=== PATIENT | male | born 1955 | race Two or more races ===

== ENCOUNTER 2017-03-28 12:35 | Observation (INO) | payer OTHER ==
[~2017-03-28] VITALS: Ht 172.7 cm; Wt 61.0 kg
[2017-03-28 12:50] VITALS: BP 166/95; PULSE 60; RESP 18
[2017-03-28 13:53] LABS: BASOPHILS % (AUTO) 0.7 % (0-3); EOSINOPHILS % (AUTO) 1.7 % (0-5); MONOCYTES % (AUTO) 7.4 % (4-12); Mean Corpuscular Volume 83.2 fL (81-100); NEUTROPHILS % (AUTO) 70.2 % (40-74); Platelet Count 128 bil/L (150-400)
[2017-03-28 14:11] LABS: Magnesium 2.1 mg/dL (1.6-2.6)
--- NOTE | 2017-03-28 14:41 | ED.REPORT ---
HPI-General Illness Date of Service Mar 28, 2017 ED Provider: Zander Huber MD Pt is an 62 year old male with a history of celiac disease who presents to the ED complaining of severe and progressively worsening abdominal pain onset 2 weeks ago. He c/o associated vomiting and nausea. He denies hematemesis, chills , fever, constipation, diarrhea, hematuria, hematochezia, chest pain, penile bleeding, and SOB. The pain radiates to his left flank. He rates his pain as a 9 /10, reporting that it is temporarily relieved by BM and exacerbated with solid food and movement. His pain is rated as a 5/10 at rest. The pt describes his pain as sharp and stating "it feels like something is inside and poking to get out." He states that he has not experienced similar symptoms previously. Nursing Notes Stated Complaint: ABDOMINAL PAIN Chief Complaint: Male Abdominal Pain Nursing Notes Reviewed: Yes Allergies: Coded Allergies: Barley Flour (Verified Allergy, Severe, CELIAC, 03/28/17) Wheat (Verified Allergy, Severe, CELIAC, 03/28/17) corn (Verified Allergy, Severe, CELIAC, 03/28/17) dextrose (Verified Allergy, Severe, BLOAT, BLEED, RECTAL PAIN, 03/28/17) ADVANCED CELIAC fructose (Verified Allergy, Severe, 03/28/17) oats (Verified Allergy, Severe, 03/28/17) rice (Verified Allergy, Severe, 03/28/17) sucrose (Verified Allergy, Severe, 03/28/17) No Active Prescriptions or Reported Meds General Time Seen by MD: 13:30 Chief Complaint Abdominal pain Hx Obtained From: Patient Arrived By: Walk-in Sudden in Onset?: No Onset Occurred: More than a week ago... (2 weeks) Symptom Duration: Since onset Location: : Abdomen Quality: Sharp Radiation: : Back Severity: Current: Pain level 5 out of 10 Severity: Maximum: Pain level 9 out of 10 Recent Healthcare: No recent doctor visit, No recent hospitalization Similar Sx Previous: No Past Medical History Past Medical History BPH Hemorrhoid Celiac disease Kidney stone 1x Denies heart disease Denies hx of kidney problems Past Surgical History Left leg repair Left ankle repair Vertebrae repair Clavicle repair Thumb repair Left ACL tear repair Family History Heart disease - father (68) and mother (82) Nephrosis - Sister ancestry Smoking History Unknown if Ever Smoker Social History Alcohol Use: "Social" Drug Use: Denies drug use 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 Ambulatory Status Independent Review of Systems Denies penile bleeding Full Review of Systems Constitutional: Denies: Chills, Fever, Recent wt loss Eyes: Denies: Blurred bilateral Ears / Nose / Throat: Denies: Sore throat Respiratory: Denies: Shortness of breath Cardiovascular: Denies: Chest pain GI: Reports: Abdominal pain, Nausea, Vomiting, Denies: Constipation, Diarrhea, Hematemesis, Hematochezia Male: Reports Flank pain, Reports Urination decreased, Denies Hematuria, Denies Penile discharge Musculoskeletal: Denies: Joint swelling Hematologic: Denies Bleeding, Denies Bruising Endocrine: Denies: Weight loss Skin: Denies Rash Allergy / Immune: Denies: Itching Neurologic: Denies: Change LOC, Headache Complete sys rev & neg: except as marked. Physical Exam Nursing note and vitals reviewed. Constitutional: Well-developed, well-nourished. Not diaphoretic. Head: Normocephalic and atraumatic. Mouth/Throat: Oropharynx is clear and moist. No oropharyngeal exudate. Eyes: EOM are normal. Pupils are equal, round, and reactive to light. Neck: Supple, no tracheal deviation. Cardiovascular: Normal rate, regular rhythm. Equal and intact distal pulses throughout. Pulmonary/Chest: Effort normal and breath sounds normal. No respiratory distress. Abdominal: Soft. No significant distension appreciated. LLQ and LUQ tenderness without rebound or guarding. Bowel sounds present. Back: Left CVA tenderness Musculoskeletal: Range of motion grossly intact, moving all extremities. No edema or tenderness appreciated. Neurological: AOx3. Grossly nonfocal exam. Strength and sensation intact and equal to bilateral upper and lower extremities. Skin: Warm and dry, no rashes or pallor appreciated. Psychiatric: Appropriate mood and affect. Behavior appears normal. Vital Signs Vital Signs Date Time Temp Pulse Resp B/P Pulse Ox O2 Delivery O2 Flow Rate FiO2 03/28/17 14:46 71 16 177/88 100 Room Air 03/28/17 12:50 36.8 60 18 166/95 Room Air Initial VS: Reviewed Interpretation & Diagnostics Lab Results Interpretation Result Diagram: 03/28/17 1335 03/28/17 1335 Test 03/28/17 13:35 03/28/17 15:33 White Blood Count 5.8th/mm3 (3.8-10.1) Red Blood Count 4.58mil/mm3 (4.40-5.80) Hemoglobin 13.3g/dL (13.8-17.2) Hematocrit 38.1% (41.0-50.0) Mean Corpuscular Volume 83.2fL (81-100) Mean Corpuscular Hemoglobin 29.0pg (27.0-35.0) Mean Corpuscular Hemoglobin Concent 34.9% (32.0-37.0) Red Cell Distribution Width 12.6% (12.3-15.4) Platelet Count 128bil/L (150-400) Neutrophils (%) (Auto) 70.2% (40-74) Lymphocytes (%) (Auto) 19.8% (14-46) Monocytes (%) (Auto) 7.4% (4-12) Eosinophils (%) (Auto) 1.7% (0-5) Basophils (%) (Auto) 0.7% (0-3) Sodium Level 140mEq/L (134-144) Potassium Level 4.4mEq/L (3.5-5.2) Chloride Level 101mEq/L (97-108) Carbon Dioxide Level 23mmol/L (18-29) Blood Urea Nitrogen 25mg/dL (8-27) Creatinine 2.52mg/dL (0.76-1.27) Estimat Glomerular Filtration Rate 28mL/min (>59) Glucose Level 83mg/dL (60-99) Calcium Level 9.8mg/dL (8.5-10.1) Magnesium Level 2.1mg/dL (1.6-2.6) Total Bilirubin 0.7mg/dL (0.0-1.2) Aspartate Amino Transf (AST/SGOT) 26U/L (0-50) Alanine Aminotransferase (ALT/SGPT) 16U/L (0-44) Alkaline Phosphatase 91U/L (25-160) Troponin T < 0.010ug/L (0.0-0.011) Total Protein 7.9g/dL (6.4-8.4) Albumin 4.4g/dL (3.4-5.0) Lipase 47U/L (13-60) Urine Color Straw (YELLOW) Urine Appearance Clear (CLEAR,HAZY) Urine pH 5.0 (5.0-8.0) Urine Specific [place] 1.005 (1.003-1.035) Urine Protein Negativemg/dL (NEG,TRACE) Urine Glucose (UA) Negativemg/dL (NEGATIVE) Urine Ketones Negativemg/dL (NEGATIVE) Urine Occult Blood Trace (NEGATIVE) Urine Nitrite Negative (NEGATIVE) Urine Bilirubin Negative (NEGATIVE) Urine Urobilinogen Normalmg/dL (NORMAL) Urine Leukocyte Esterase Negative (NEGATIVE) Urine RBC 0-2/hpf (0-2) Urine WBC 0-5/hpf (0-5) Urine Epithelial Cells None/hpf (NONE-MOD) Urine Crystals None seen (NONE SEEN) Urine Bacteria None/hpf (NONE-FEW) Urine Hyaline Casts None/lpf (NONE) Urine Granular Casts None seen (NONE SEEN) Urine Waxy Casts None seen (NONE SEEN) Urine Red Blood Cell Casts None seen (NONE SEEN) Urine White Blood Cell Casts None seen (NONE SEEN) Urine Mucus None seen (None Seen) Urine Trichomonas None seen (NONE SEEN) Urine Yeast None (NONE SEEN) Urinalysis Comment None Urine Culture Reflexed Not indicated Lab Results Interpretation: Creatinine - 2.52 Lipase - WNL Platelet count - 13.3 CBC - WNL Troponin - negative ECG Interpretation ECG Interpretation: Sinus rhythm with a rate of 58 Atrial premature complex Time: 01:50 Interpreted by: ED physician CT Abd / Pelvis Interpretation IMPRESSION: 1. Moderate bilateral hydronephrosis and hydroureter to the level of the uterovesical junctions. 2. Enlarged prostate. There is mass effect at the bladder base from enlarged prostate versus bladder mass(es). Recommend urology consultation. 3. Mild concentric thickening of urinary bladder. Bladder is mildly distended. The findings suggest bladder outlet obstruction. 4. Cholelithiasis. 5. Suboptimal examination due to lack of IV and oral contrast. Dictated by: Gerard Marshall M.D. on 03/28/2017 at 15:09 Study type: Abdominal CT no contrast Interpretation / Wet Read by: Interpret - Radiologist Re-Eval/Medical Decision Med Decision/Clinical Course In summary, 62-year-old male presenting to the ED for evaluation of progressively worsening abdominal pain over the past several weeks. Differential is broad and includes appendicitis, small bowel obstruction, cholecystitis, intra-abdominal mass/abscess, bladder outlet obstruction, ACS, AAA, nephrolithiasis, pancreatitis, etc. Patient is not having any chest pain; EKG demonstrates sinus rhythm, no acute ischemic changes - troponin negative. Laboratory studies reviewed, most notable for a creatinine of 2.52 - no known history of kidney disease. CBC and CMP otherwise grossly within normal limits with the exception of a mildly decreased platelet count. Patient has a reported severe reaction to a number of different substances, and is unsure whether or not he can have the contrast for his CT scan; also, given his poor renal function at this time, decision was made to hold off on contrast for now. A noncontrast CT scan of the patient's abdomen and pelvis was obtained, demonstrates moderate bilateral hydronephrosis and hydroureter as well as an enlarged prostate. Unclear if there is mass effect from his enlarged prostate or a bladder mass. He also has incidental cholelithiasis; no right upper quadrant tenderness on examination, bilirubin grossly within normal limits. Given the above, urology was consulted; appreciate recommendations. After discussion with the urologist, decision made to admit the patient for further management and evaluation. They will see the patient in the morning. Dowd catheter placed here in the ED with marked improvement in patient's symptoms. I discussed the above with the patient at length. Discussed with Dr. Delacruz, who kindly accepted the patient for admission. Patient agreeable to plan as stated, no further questions. Source of Hx: Old records Time of Eval: 02:28 Re-Evaluation/Progress Note: Informed pt of plan for admission. Pt understands and agrees with plan for admission. All questions addressed. Counseled Regarding: Diagnosis, Lab results, Need for admission Discharge & Departure Primary Impression: Acute kidney injury Additional Impressions: Bladder outlet obstruction Prostatic hypertrophy Cholelithiasis Cholelithiasis location: other site Biliary obstruction: without biliary obstruction Qualified Code: K80.80 - Other cholelithiasis without obstruction Disposition: ADMITTED TO HOSPITAL Discharge Condition All VS Reviewed: Yes Condition: Stable Referrals: OTHER,PHYSICIAN (PCP) (Family) Scribe Attestation Portions of this note were transcribed by Laura Mcgovern. I, Dr. Huber personally performed the history, physical exam and medical decision-making; I reviewed and confirmed the accuracy of the information in the transcribed note. Signed by: Luz Marina Roberto, 03/28/17. copies to: OTHER,PHYSICIAN Zander Huber MD Mar 28, 2017 14:41 Laura Montes De Oca Mar 28, 2017 14:51
[2017-03-28 14:46] VITALS: BP 177/88; PULSE 71; RESP 16; O2SAT 100
[2017-03-28] MEDS ORDERED: fentaNYL-PF 50 mCg/mL 2 mL Inj IVPUSH PRN (15:15)
--- NOTE | 2017-03-28 15:22 | DRSVH ---
PROCEDURE: CT ABDOMEN AND PELVIS WITHOUT CONTRAST ([id number]) INDICATIONS: 62 year-old male with abdominal pain, unable to tolerate po TECHNIQUE: Noncontrast 5 mm thick sections acquired from the diaphragms to the symphysis. 5 mm coronal and sagi ttal reformats were then performed. For radiation dose reduction, the following was used: automated exposure control, adjustment of mA and/or kV according to patient size. COMPARISON: None. FINDINGS: Image quality: Excellent. ABDOMEN: Lung bases: Lung bases are clear. Heart size is normal. Solid organs: Bilateral moderate hydronephrosis and hydroureter. No renal stones. Kidneys are normal in size. Liver and spleen are normal in size. Gallbladder contains a small gallstone. Pancreas is normal in contours. No adrenal nodules. Peritoneum and bowel: Unenhanced bowel loops demonstrate normal wall thickness and caliber. No free fluid or air. Nodes and vessels: No retroperitoneal or mesenteric adenopathy by size criteria. Aorta and inferior vena cava are normal in caliber. Miscellaneous: No ventral hernias. PELVIS: Genitourinary: Bladder is moderately distended. Bilateral ureteral dilations extend to the ureterove sical junction. There is mass effect at the bladder base secondary to superior distention of prostate . Bladder wall is mildly thickened. Miscellaneous: No inguinal hernias or adenopathy. Bones: No suspicious bony lesions. No vertebral body compression fractures. IMPRESSION: 1. Moderate bilateral hydronephrosis and hydroureter to the level of the uterovesical junctions. 2. Enlarged prostate. There is mass effect at the bladder base from enlarged prostate versus bladder mass(es). Recommend urology consultation. 3. Mild concentric thickening of urinary bladder. Bladder is mildly distended. The findings suggest b ladder outlet obstruction. 4. Cholelithiasis. 5. Suboptimal examination due to lack of IV and oral contrast. Dictated by: Gerard Marshall M.D. on 03/28/2017 at 15:09 Approved by: Gerard Marshall M.D. on 03/28/2017 at 15:20
[2017-03-28] MEDS ORDERED: Lidocaine 2% 6mL Topical Jelly ONE (15:58)
[2017-03-28 16:07] LABS: APPEARANCE,URINE CLEAR (CLEAR,HAZY); COLOR,URINE STRAW (YELLOW); OCCULT BLOOD,URINE TRACE (NEGATIVE); UROBILINOGEN,URINE NORMAL (NORMAL)
[2017-03-28] MEDS ORDERED: Polyethylene Glycol (PEG) 17 Gm Powder PO PRN (16:25)
[2017-03-28] MEDS ORDERED: Alum-Mag Hydrox-Simeth 30 mL Suspension PO PRN (16:25)
[2017-03-28] MEDS ORDERED: Ondansetron 2 mg/mL 2 mL Inj IVPUSH PRN (16:25)
--- NOTE | 2017-03-28 16:41 | NUR ---
New admit from ER Report received from Mirian Gimenez Er nurse. Admission and med req done by admission nurse. Awaiting patient from the ER.
[2017-03-28 16:44] VITALS: BP 190/88; PULSE 72; RESP 20; O2SAT 100
[2017-03-28 16:49] VITALS: BP 190/88; PULSE 72; RESP 20; O2SAT 100
[2017-03-28 17:35] VITALS: BP 182/103; PULSE 73; RESP 18; O2SAT 100
--- NOTE | 2017-03-28 17:35 | NUR ---
Arrival to [facility] patient arrived to [facility] approx 1700. per patient prefers to bring own water and food due to history of Celiac disease. per patient multiple allergies to grains and preservatives in IV fluids and medications. andrew paged Dr. Delacruz and awaiting orders. Dowd cath patent and draining pink tinged urine in the catheter bag. Denies abdominal pain or discomfort. Denies nausea or vomiting at this time. alert and oriented X3. Able to make needs known. No skin issues noted. patient reports catheter discomfort and standing is comfortable position per patient. BP 182/103, pulse 73, oxygen 100%RA. Call light with in reach for safety. continue to monitor.
--- NOTE | 2017-03-28 17:58 | NUR ---
Medication list from pharmacy Patient has medication list from the pharmacist for patient to research the preservatives per patient report.
--- NOTE | 2017-03-28 18:24 | NUR ---
IV fluids and Flomax PO New orders for IV fluids and PO Flomax. Unable to start IV fluids and give PO Flomax due to patient received medication list from the pharmacyst Shaniqua to research on the preservatives in the medications. Currently patient is working on that med list. BP 182/103, pulse 73. [facility] hospitalist Dr. Delacruz. awaiting call back with orders.
--- NOTE | 2017-03-28 19:07 | PCM.HPMED ---
Subjective Date of Service Mar 28, 2017 Primary Provider: Admitting Physician: Basil Delacruz MD Primary Care Physician: Other,Physician Attending Physician: Basil Delacruz MD Admit Status: From the Emergency Department, 23-Hour Observation Chief Complaint: lower abdominal and left flank pain /1 day History of Present Illness: 62-year-old gentleman with no significant past medical history except celiac disease presented to the emergency room due to lower abdominal and flank pain of one day. Patient states he had been having intermittent, dull aching lower abdominal pain for the last 2 weeks. he states he went to work and had severe episode of lower abdominal pain today 2hrs prior to presentation which prompted ED visit. He also had urinary frequency and urgency for the last few weeks. ED course: Exam remarkable for distended bladder. Lab unremarkable except creatinine 2.[address] enlarged prostate Moderate bilateral hydronephrosis and hydroureter bradshaw inserted adn 800ml urine drained in few minutes Review of Systems: Comprehensive review of systems performed, pertinent positives and negatives included in history of present illness Allergies Coded Allergies: Barley Flour (Verified Allergy, Severe, CELIAC, 03/28/17) Wheat (Verified Allergy, Severe, CELIAC, 03/28/17) corn (Verified Allergy, Severe, CELIAC, 03/28/17) dextrose (Verified Allergy, Severe, BLOAT, BLEED, RECTAL PAIN, 03/28/17) ADVANCED CELIAC fructose (Verified Allergy, Severe, 03/28/17) oats (Verified Allergy, Severe, 03/28/17) rice (Verified Allergy, Severe, 03/28/17) sucrose (Verified Allergy, Severe, 03/28/17) Home Medications none PMH BPH Hemorrhoid Celiac disease Kidney stone 1x Denies heart disease Denies hx of kidney problems Surgical History Left leg repair Left ankle repair Vertebrae repair Clavicle repair Thumb repair Left ACL tear repair Family History heart disease - father (68) and mother (82) Nephrosis - Sister Social History Hx Alcohol Use: Yes (OCCASIONAL ) Hx Substance Use: No Smoking Status: Unknown if Ever Smoker Exam Vital Signs Vital Sign - Last Date Time Temp Pulse Resp B/P Pulse Ox O2 Delivery O2 Flow Rate FiO2 03/28/17 17:35 36.6 73 18 182/103 100 Room Air Exam Gen. patient is lying comfortably in hospital bed HEENT: Head is normocephalic atraumatic, Pupils equal and reactive, extraocular movements intact, Lungs clear to auscultation bilaterally Heart regular rate and rhythm without murmurs gallops or rubs Abdomen soft nontender without hepatosplenomegaly Extremities pulses are present dorsalis pedis posterior tibialis and radial. tSkin is warm and dry there are no rashes, Psych alert and oriented to person place and time Neuro cranial nerves II through XII are grossly intact Lymph: There is no lymphadenopathy appreciated in the cervical supra infraclavicular regions : bradshaw in place Lab and Diagnostics Result Diagram: 03/28/17 1335 03/28/171334 X-Rays, CTs and MRIs PROCEDURE: CT ABDOMEN AND PELVIS WITHOUT CONTRAST ([id number]) INDICATIONS: 62 year-old male with abdominal pain, unable to tolerate po IMPRESSION: 1. Moderate bilateral hydronephrosis and hydroureter to the level of the uterovesical junctions. 2. Enlarged prostate. There is mass effect at the bladder base from enlarged prostate versus bladder mass(es). Recommend urology consultation. 3. Mild concentric thickening of urinary bladder. Bladder is mildly distended. The findings suggest bladder outlet obstruction. 4. Cholelithiasis. 5. Suboptimal examination due to lack of IV and oral contrast. Dictated by: Gerard Marshall M.D. on 03/28/2017 at 15:09 Assessment & Plan 62-year-old gentleman with no significant past medical history except celiac disease presented to the emergency room due to lower abdominal and flank pain of one day. # acute kidney injury due to obstructive uropathy -Initial Cr 2.52 -Bradshaw inserted and draining -NS at 100ml/h # AVILES with bilateral hydronephrosis and hydroureter -due to prostate cancer versus BPH -PSA in am -bradshaw placed -Urology consulted -Started Flomax 0.4 mg by mouth daily # History of celiac disease -Gluten and grain free diet ,nutrition consult -patient states many meds has trace corn or grain components and caused sxs before including vit C . needs to run thru pharmacy when adding meds observation status,may need to change to inpatient if urology plans to do any further workup or rx inpatient full code Basil Delacruz MD Mar 28, 2017 19:07
[2017-03-28 19:27] VITALS: BP 168/91; PULSE 77; RESP 15; O2SAT 100
[2017-03-28] MEDS: 0.9% Sodium Chloride 1,000 ML IV SCH (20:31)
[2017-03-29 00:16] VITALS: BP 146/83; PULSE 81; RESP 14; O2SAT 96
[2017-03-29] MEDS: 0.9% Sodium Chloride 1,000 ML IV SCH ×2 (02:24→09:17)
[2017-03-29 03:42] VITALS: BP 166/94; PULSE 71; RESP 18; O2SAT 71
[2017-03-29 05:07] VITALS: PULSE 75
[2017-03-29 05:30] LABS: BASOPHILS % (AUTO) 0.3 % (0-3); EOSINOPHILS % (AUTO) 0.6 % (0-5); MONOCYTES % (AUTO) 8.4 % (4-12); Mean Corpuscular Hemoglobin 28.6 pg (27.0-35.0); Mean Corpuscular Volume 81.7 fL (81-100); NEUTROPHILS % (AUTO) 73.6 % (40-74); Platelet Count 135 bil/L (150-400)
--- NOTE | 2017-03-29 05:39 | NUR ---
Medications Pt is alert and oriented x4, denies chest pain, N/V, or SOB. He calls appropriately and is able to communicate needs. Pt's BP was elevated 160's/80's-90's, pt declined to take BP meds even after explaining the risks of having elevated BP. Pt reports that he is very sensitive to ingredients in medications and his blood pressure was elevated because of being in the hospital. Pt also declined to take flomax, normal saline or any other medications. MD notified via [employer] page. He had an output of 3000cc pink to red tinged urine, with few clots. catheter remains patent but pt c/o "severe sharp" pain on and off. Pharmacy came to the bedside to discuss ordered meds with patient per patient request, he was provided for written information on different meds. Patient has his own food and water, denies any abdominal discomfort all shift.
[2017-03-29 05:43] LABS: Magnesium 1.8 mg/dL (1.6-2.6)
[2017-03-29 07:51] VITALS: BP 142/89; PULSE 62; RESP 18; O2SAT 96
--- NOTE | 2017-03-29 09:18 | NUR ---
Refusals Pt refuses to have IV flushed as he states there is Alcohol as a preservative in which he can not have. Pt also refuses blood pressure medications and states that his BP is increased r/t pain and situation. Pt did agree to taking the Flomax. Capsule is made out of gelatin therefore he can take this. Educations print out given to pt. Care continues
--- NOTE | 2017-03-29 10:42 | NUR ---
Social Work- Brief Note/Readiness for Discharge/Multidisciplinary Rounds Data: EMR reviewed. Pt is a 62 year old male admitted for acute kidney injury, bladder outlet obstruction per H&P. Pt's insurance is [facility]. Pt's PCP is Dewey Newberry in [place]. Pt's readmit risk score is 1. Pt's NOK is brother Stanley Barney, . Pt discussed in multidisciplinary rounds, Urology is consulting. Pt is like to d/c home with bradshaw, potentially today pending medical course. No SW needs identified. No concerns regarding pt's capacity for self-care. SW met with pt at bedside regarding discharge plan, SW role explained. Pt alert and oriented x3. Pt splits his time between [place] and [place], [place] depending on his work schedule. Pt is independent at baseline with ADLs and self-care. Pt drives. Pt reports that he has completed DPOA, nothing is on file at this time. SW requested copy of paperwork. SW wrote phone number and plan on whiteboard. No d/c needs identified at this time. Pt to drive himself home via POV at time of discharge. SW will continue to follow. Assessment: Pt who is independent at baseline with ADLs and self-care Plan: Pt to drive himself home via POV at time of discharge. No d/c needs identified at this time. SW will continue to follow. ROSE MARY Hernandez
[2017-03-29 12:54] VITALS: BP 153/93; PULSE 76; RESP 18; O2SAT 98
--- NOTE | 2017-03-29 14:09 | NUR ---
Bladder spasms / refusals / IV Pt c/o urge to void and feeling as if his bladder is full. He states that he still urinates into the Dowd and has extreme pain at times. Educated pt regarding Dowd catheters and how they work as well as the fact that his bladder was so full for so long that he may be having bladder spasms intermittently. Pt believes that if the Dowd tubing is help up longer than 5 seconds that the urine backs up into his bladder and causes the pain. He states that the pressure does not go away. Pt continues to refuse any medications to help this issue. Dowd patent and draining to gravity pink urine with clots noted. Pt continues to refuses any medications for pain or BP. Pt aware of risks. Pt refuses to have his IV flushed r/t allergy to preservative of Flush. Pt educated regarding issues with IV catheters not being flushed and the probability that it may not be patent if needed. Pt states that he understands. Care continues
--- NOTE | 2017-03-29 14:51 | PCM.HPSURG ---
Subjective Date of Service: Mar 29, 2017 Referring Provider: Admitting Physician: Basil Delacruz MD Primary Care Physician: Other,Physician Attending Physician: Rob Ramírez MD Chief Complaint Mr Barney is a very pleasant 62 with urinary retention and ARF. His CT demonstrates findings c/w AVILES with B hydroureteronephrosis and distended bladder. Bradshaw catheter, by report, drained 800 ml after placement in the ER. History of Present Illness 62-year-old gentleman with no significant past medical history except celiac disease presented to the emergency room due to lower abdominal and flank pain of one day. Patient states he had been having intermittent, dull aching lower abdominal pain for the last 2 weeks. he states he went to work and had severe episode of lower abdominal pain today 2hrs prior to presentation which prompted ED visit. He also had urinary frequency and urgency for the last few weeks. ED course: Exam remarkable for distended bladder. Lab unremarkable except creatinine 2.[address] enlarged prostate Moderate bilateral hydronephrosis and hydroureter bradshaw inserted adn 800ml urine drained in few minutes Allergy Allergies: Coded Allergies: Barley Flour (Verified Allergy, Severe, CELIAC, 03/28/17) Wheat (Verified Allergy, Severe, CELIAC, 03/28/17) corn (Verified Allergy, Severe, CELIAC, 03/28/17) dextrose (Verified Allergy, Severe, BLOAT, BLEED, RECTAL PAIN, 03/28/17) ADVANCED CELIAC fructose (Verified Allergy, Severe, 03/28/17) oats (Verified Allergy, Severe, 03/28/17) rice (Verified Allergy, Severe, 03/28/17) sucrose (Verified Allergy, Severe, 03/28/17) Social History Hx Alcohol Use: Yes (OCCASIONAL ) Hx Substance Use: No PMH HEENT History History of ENT Problems?: No Cardiovascular History History of Heart Problems?: No Cardiovascular History: Positive for:: Hypertension (NOT DX; JUST RUNNING HIGH ) Denies:: Congestive Heart Failure Respiratory History of Respiratory Problem: No Respiratory History: Denies:: Tuberculosis Neurological History Hx Neurologic Problems?: No Gastrointestinal History HX of GI Problems?: Yes Gastrointestinal History: Denies:: Rectal Bleeding ( hemorrhoids) Other GI Pertinent History: severe celiac disease Genitourinary History Hx of Gu Problems?: Yes Genitourinary History: Positive for: Kidney Stones Other Pertinent History?: current: urinary retension, acute kidney injury Female/Male History Reproductive History Male: Positive for: Prostate Problems (enlarged prostate) Denies: Scrotal Mass Musculoskeletal History Hx Musculoskeletal Problems?: Yes Psycho Social History Hx of Psycho/Social Problems?: No Other History Hx Any Other Health Problems?: Yes Other History: Positive for:: Hospitalization (for surgeries) Denies:: Cancer Thyroid Disease Diabetes: No Social History Hx Alcohol Use: Yes (OCCASIONAL )Hx Substance Use: No Smoking Status: Unknown if Ever Smoker H&P Surgical Exam Exam General: Alert, Oriented X3, No Acute Distress Neuro: Cranial Nerves 2-12 nl Catheters: Urethral 2 Way Bradshaw (draining clear yellow) Assessment & Plan Assessment AVILES and ARF VTE Mechanical Devices: Intermittant Pneumatic CD Plan: We discussed his clinical condition We reviewed his CT findings - Robert diagrams of the kidney, ureters, bladder, prostate to aid the discussion We discussed his Cr and ARF Taken together, he has AVILES We talked about Flomax - Nature of - Benefits We discussed his bradshaw - I recommend continuing for 1 wk We discussed voiding trial in 1 wk We talked about natural history of AUR and voiding trials - We broached the subject of TURP Dispo: - RTC 1 wk with voiding trial and while on Flomax - Repeat Cr as outpt Nusrat Lindsay MD Mar 29, 2017 14:51
--- NOTE | 2017-03-29 15:21 | PCM.DC.MED ---
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 # History of celiac disease, chronic, stable. Consultations Urology- Dr. Lindsay Procedures XRay, CTs & MRIs PROCEDURE: CT ABDOMEN AND PELVIS WITHOUT CONTRAST ([id number]) INDICATIONS: 62 year-old male with abdominal pain, unable to tolerate po IMPRESSION: 1. Moderate bilateral hydronephrosis and hydroureter to the level of the uterovesical junctions. 2. Enlarged prostate. There is mass effect at the bladder base from enlarged prostate versus bladder mass(es). Recommend urology consultation. 3. Mild concentric thickening of urinary bladder. Bladder is mildly distended. The findings suggest bladder outlet obstruction. 4. Cholelithiasis. 5. Suboptimal examination due to lack of IV and oral contrast. Dictated by: Gerard Marshall M.D. on 03/28/2017 at 15:09 Brief History Per HPI by Dr. Delacruz on 03/28/17 62-year-old gentleman with no significant past medical history except celiac disease presented to the emergency room due to lower abdominal and flank pain of one day. Patient states he had been having intermittent, dull aching lower abdominal pain for the last 2 weeks. he states he went to work and had severe episode of lower abdominal pain today 2hrs prior to presentation which prompted ED visit. He also had urinary frequency and urgency for the last few weeks. ED course: Exam remarkable for distended bladder. Lab unremarkable except creatinine 2.[address] enlarged prostate Moderate bilateral hydronephrosis and hydroureter bradshaw inserted adn 800ml urine drained in few minutes Hospital Course 62-year-old gentleman with no significant past medical history except celiac disease presented to the emergency room due to lower abdominal and flank pain of one day found to have b/l hydronephrosis and EVITA. s/p bradshaw insertion in ED with improvement of obstruction. # acute kidney injury due to obstructive uropathy, poa, active -Initial Cr 2.52, downtrended to 2.1 after bradshaw placed. -Bradshaw inserted and draining. -Pt refused IVF, not likely prerenal so discontinued IVF. -Will need repeat Renal Function in 1 week. 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 Less likely Prostate cancer. -PSA pending at time of discharge. -bradshaw placed in ED, traumatic. Urine in bradshaw- blood tinged. -Urology consulted. Recommends discharge with bradshaw, Flomax, and follow up in her office in 1 week. Bradshaw training provided by nurse. -Started Flomax 0.4 mg by mouth daily HTN- poa, active- Untreated. Pt refused Amlodipine. May have been increased due to pain. Flomax for BPH may help blood pressure. Follow up with PCP in 1 week for Blood pressure check and possibly starting new medication to control better. # History of celiac disease, chronic, stable. -Gluten and grain free diet. -patient states many meds has trace corn or grain components and caused sxs before including vit C. needs to run thru pharmacy when adding meds Dispo- will discharge home with bradshaw and plan for Urology follow up to remove. - Follow up in 1 week with Urology, with Dr. Lindsay. - Repeat Renal function at that visit. - New medication Flomax added. Exam Vital Signs (Last) Date Time Temp Pulse Resp B/P Pulse Ox O2 Delivery O2 Flow Rate FiO2 03/29/17 12:54 36.7 76 18 153/93 98 Room Air Test 03/28/17 13:35 03/28/17 15:33 03/29/17 04:50 Troponin T < 0.010ug/L (0.0-0.011) Lipase 47U/L (13-60) Urine Color Straw (YELLOW) Urine Appearance Clear (CLEAR,HAZY) Urine pH 5.0 (5.0-8.0) Urine Specific [place] 1.005 (1.003-1.035) Urine Protein Negativemg/dL (NEG,TRACE) Urine Glucose (UA) Negativemg/dL (NEGATIVE) Urine Ketones Negativemg/dL (NEGATIVE) Urine Occult Blood Trace (NEGATIVE) Urine Nitrite Negative (NEGATIVE) Urine Bilirubin Negative (NEGATIVE) Urine Urobilinogen Normalmg/dL (NORMAL) Urine Leukocyte Esterase Negative (NEGATIVE) Urine RBC 0-2/hpf (0-2) Urine WBC 0-5/hpf (0-5) Urine Epithelial Cells None/hpf (NONE-MOD) Urine Crystals None seen (NONE SEEN) Urine Bacteria None/hpf (NONE-FEW) Urine Hyaline Casts None/lpf (NONE) Urine Granular Casts None seen (NONE SEEN) Urine Waxy Casts None seen (NONE SEEN) Urine Red Blood Cell Casts None seen (NONE SEEN) Urine White Blood Cell Casts None seen (NONE SEEN) Urine Mucus None seen (None Seen) Urine Trichomonas None seen (NONE SEEN) Urine Yeast None (NONE SEEN) Urinalysis Comment None Urine Culture Reflexed Not indicated White Blood Count 7.0th/mm3 (3.8-10.1) Red Blood Count 4.65mil/mm3 (4.40-5.80) Hemoglobin 13.3g/dL (13.8-17.2) Hematocrit 38.0% (41.0-50.0) Mean Corpuscular Volume 81.7fL (81-100) Mean Corpuscular Hemoglobin 28.6pg (27.0-35.0) Mean Corpuscular Hemoglobin Concent 35.0% (32.0-37.0) Red Cell Distribution Width 12.6% (12.3-15.4) Platelet Count 135bil/L (150-400) Neutrophils (%) (Auto) 73.6% (40-74) Lymphocytes (%) (Auto) 17.0% (14-46) Monocytes (%) (Auto) 8.4% (4-12) Eosinophils (%) (Auto) 0.6% (0-5) Basophils (%) (Auto) 0.3% (0-3) Sodium Level 139mEq/L (134-144) Potassium Level 4.0mEq/L (3.5-5.2) Chloride Level 100mEq/L (97-108) Carbon Dioxide Level 23mmol/L (18-29) Blood Urea Nitrogen 22mg/dL (8-27) Creatinine 2.10mg/dL (0.76-1.27) Estimat Glomerular Filtration Rate 34mL/min (>59) Glucose Level 167mg/dL (60-99) Calcium Level 9.3mg/dL (8.5-10.1) Magnesium Level 1.8mg/dL (1.6-2.6) Total Bilirubin 0.9mg/dL (0.0-1.2) Aspartate Amino Transf (AST/SGOT) 17U/L (0-50) Alanine Aminotransferase (ALT/SGPT) 12U/L (0-44) Alkaline Phosphatase 84U/L (25-160) Total Protein 6.6g/dL (6.4-8.4) Albumin 4.0g/dL (3.4-5.0) Discharge Medications Discharge Medications Tamsulosin (Flomax) 0.4 Mg Capsule 0.4 MG PO DAILY Prescribed by: LANCE INGRAM MD Additional med instructions - New medication Flomax added. Followup Plan Disposition: Home Follow-up plan - Follow up in 1 week with Urology, with Dr. Lindsay. - Repeat Renal function at that visit. Follow up with PCP in 1 week for Blood pressure check and possibly starting new medication to control better. Discharge Diet: No restrictions Discharge Activity: Other (avoid dislodging bradshaw ) Patient Instructions Follow nurses instruction regarding bradshaw catheter care. Follow-up Provider: Mike Altamirano DO Follow-up with PCP in: 1 week Provider: Nusrat Lindsay MD Follow-up in: 1 week Time spent Greater than 30 minutes was spent in preparation of discharge with greater than 50% of that time dedicated to patient counseling and coordination of care. copies to: Mike Altamirano Navdeep MD Mar 29, 2017 15:21
[2017-03-29] MEDS ORDERED: TAMS0.4C98 PO (15:23)
--- NOTE | 2017-03-29 15:28 | PCM.DIMED ---
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 # History of celiac disease, chronic, stable. Medication Instructions Additional med instructions - New medication Flomax added. Diet Discharge Diet: No restrictions Activity Discharge Activity: Other (avoid dislodging bradshaw ) Patient Instructions Patient Instructions Follow nurses instruction regarding bradshaw catheter care. Follow-up plan - Follow up in 1 week with Urology, with Dr. Lindsay. - Repeat Renal function at that visit. Follow up with PCP in 1 week for Blood pressure check and possibly starting new medication to control better. Follow-up Provider: Mike Altamirano DO Follow-up with PCP in: 1 week Provider: Nusrat Lindsay MD Follow-up in: 1 week Rob Ramírez MD Mar 29, 2017 15:28
--- NOTE | 2017-03-29 15:46 | NUR ---
DC All discharge instructions reviewed with pt. No further questions per pt. All Dowd catheter care and changing of bags reviewed and return demonstration performed adequately. Extra supplies sent home with pt. Prescription in hand. All belongings in hand. Care discontinues
--- NOTE | 2017-03-29 15:58 | NUR ---
Social Work- Discharge Data: EMR reviewed. Pt discharged today. Pt d/c home with bradshaw. No needs identified. No concerns regarding pt's capacity for self-care. Pt drove himself home POV. Assessment: Pt who is independent at baseline with ADLs and self-care Plan: Pt drove himself home via POV. No d/c needs identified. ROSE MARY Hernandez
== END 2017-03-29 16:30 | disposition home or self-care (01) ==
LOC: SED 12:35 → OSC 16:30 → INTOOBSV 16:30
PROVIDERS: ADMIT Internal Medicine; ATTEND Internal Medicine
DX: N17.9 Acute kidney failure, unspecified (principal); N13.9 Obstructive and reflux uropathy, unspecified; N13.1 Hydronephrosis with ureteral stricture, not elsewhere classified; I10 Essential (primary) hypertension; K90.0 Celiac disease; N40.0 Benign prostatic hyperplasia without lower urinary tract symptoms; R33.9 Retention of urine, unspecified; K80.80 Other cholelithiasis without obstruction; Z87.442 Personal history of urinary calculi
CPT/HCPCS: 36415; 51702; 74176; 80053; 81000; 83690; 83735; 84153; 84484; 85025; 93005; 96374; 99285; G0378; J3010